=== PATIENT | female | born 1975 | race Two or more races ===

== ENCOUNTER 2024-08-17 12:50 | Day surgery (SDC) | payer MEDICAID, SELFPAY ==
[2024-08-17] VITALS (10 sets, daily range): BP systolic 101–120; BP diastolic 65–79; PULSE 75–97; RESP 15–25; TEMP 36.8–36.9; O2SAT 40–100; BMI 29.2
[2024-08-17 13:08] LABS: HCG Qualitative,Urine Negative
[2024-08-17] MEDS: RINGERS LACTATED 1000 ML 1,000 ML 125 ML IV (14:23)
[2024-08-17] MEDS: fentaNYL CIT INJ 50 mCg/ML AMP 2ML (ASD USE ONLY) IV (14:31)
[2024-08-17] MEDS: MIDAZOLAM INJ 1 MG/ML VIAL 2 ML (ASD USE ONLY) 2 MG IV (14:31)
== END 2024-08-17 15:30 | disposition home or self-care (01) ==
PROVIDERS: Referring Provider Surgery; Visit Provider Surgery
PROC: 0DBE8ZX Excision of Large Intestine, Via Natural or Artificial Opening Endoscopic, Diagnostic (ICD-10-PCS; CPT 45380; principal; 2024-08-17 14:30)
DX: Z12.11 Encounter for screening for malignant neoplasm of colon (principal); E11.9 Type 2 diabetes mellitus without complications
CPT/HCPCS: 45378; 81025; A4217; J2250; J3010; J7120